=== PATIENT | male | born 1950 | race Caucasian/White ===

== ENCOUNTER 2019-10-18 10:52 | Emergency (ER) | payer MEDICARE, OTHER ==
[~2019-10-18] VITALS: Ht 185.4 cm; Wt 112.9 kg
--- NOTE | 2019-10-18 10:55 | NUR ---
BIBRA 76, C/O WEAKNESS AND CHILLS x 2 DAYS, AFEBRILE. TO ER BED 9, HOOKED TO MONITOR, CHANGED TO HOSP GOWN, PROVIDED W WARM BLANKET, AWAITING MD CABRERA
--- NOTE | 2019-10-18 11:25 | NUR ---
RAVI JOSE AT BEDSIDE
[2019-10-18] MEDS ORDERED: IV NS 0.9% 1,000 ML BAG IV ONE ×2 (11:30→14:00)
--- NOTE | 2019-10-18 11:41 | NUR ---
CRIMINAL ATTORNEY AT BEDSIDE
[2019-10-18 11:44] LABS: BASOPHILS # (AUTO) 0.1 /CMM (0.0-0.2); BASOPHILS % (AUTO) 0.5 % (0.0-2.0); EOSINOPHILS % (AUTO) 0.1 % (0.0-6.0); HEMATOCRIT 43 % (39-51); HEMOGLOBIN 13.8 g/dL (13.5-17.5); LYMPHOCYTES # (AUTO) 0.9 /CMM (0.8-4.8); LYMPHOCYTES % (AUTO) 6.6 % (20.0-44.0); MEAN CORPUSCULAR HGB CONC 33 g/dl (31.0-36.0); MEAN CORPUSCULAR VOLUME 77 fL (80-96); MONOCYTES # (AUTO) 1.1 /CMM (0.1-1.30); NEUTROPHILS # (AUTO) 11.9 /CMM (1.8-8.9); NEUTROPHILS % (AUTO) 84.8 % (43.0-81.0); PLATELET COUNT (AUTO) 194 /CMM (150-450); RED BLOOD CELL COUNT(AUTO) 5.53 MIL/uL (4.5-6.0); WHITE BLOOD COUNT (AUTO) 14.1 K/uL (4.3-11.0)
[2019-10-18 11:56] LABS: CALCIUM, SERUM 9.2 mg/dL (8.5-10.1); CREATININE 1.5 mg/dL (0.6-1.3); POTASSIUM 3.3 mmol/L (3.5-5.1)
[2019-10-18 12:02] LABS: ALBUMIN 3.5 g/dL (3.4-5.0); BILIRUBIN,DIRECT 0.3 mg/dL (0.0-0.2); BILIRUBIN,TOTAL 1.4 mg/dL (0.2-1.0); TOTAL PROTEIN, SERUM 7.8 g/dL (6.4-8.2)
--- NOTE | 2019-10-18 14:02 | NUR ---
PATIENT IN BED AWAKE, HOOKED TO MONITOR, AT BEDSIDE, WILL CONTINUE TO MONITOR. KEPT SAFE AND COMFORTABLE
[2019-10-18 15:13] LABS: APPEARANCE,URINE Clear (CLEAR); BILIRUBIN,URINE Negative (NEGATIVE); BLOOD, URINE Moderate Ery/uL (NEGATIVE); COLOR,URINE Yellow (YELLOW); KETONES,URINE Negative (NEGATIVE); LEUKOCYTE ESTERASE ,URINE Negative (NEGATIVE); NITRITE, URINE Negative (NEGATIVE); PROTEIN,URINE >=300 mg/dl (NEGATIVE); UGLUCOSE Negative (NEGATIVE); UROBILINOGEN,URINE >=8.0 EU/dL (0.2)
[2019-10-18 15:14] LABS: BACTERIA,URINE Few /HPF (None Seen); HYALINE CASTS, URINE Few /LPF (None Seen); SQUAMOUS EPITHELIAL CELL,UR Rare /HPF (None Seen)
--- NOTE | 2019-10-18 15:52 | NUR ---
PATIENT ABLE TO AMBULATE WITH STEADY GAIT. MADE RAVI JOSE AWARE. Addendum: 10/18/19 at 1618 by CHIO PATIENT ABLE TO AMBULATE WITH UNSTEADY GAIT. MADE RAVI JOSE AWARE.
--- NOTE | 2019-10-18 15:56 | NUR ---
Patient does not wish to proceed with medical care recommended by RAVI JOSE. Patient given information related to possible complications, up to and including , which could occur as a result of leaving the hospital at this time. Patient verbalizes understanding of risks involved due to leaving against medical advice. Patient has signed AMA form.
--- NOTE | 2019-10-18 15:58 | NUR ---
IV removed. Catheter intact and site benign. Pressure and 4x4 applied to site. No bleeding noted. Patient discharged to home with in stable condition. Written and verbal after care instructions given. Patient verbalizes understanding of instruction.
[2019-10-18 16:20] VITALS: BP 176/92
== END 2019-10-18 16:20 | disposition left against medical advice (07) ==
LOC: ER 10:54
DX: R53.1 Weakness (principal); I10 Essential (primary) hypertension; I25.2 Old myocardial infarction; F32.9 Major depressive disorder, single episode, unspecified; Z86.73 Personal history of transient ischemic attack (TIA), and cerebral infarction without residual deficits; Z95.818 Presence of other cardiac implants and grafts
CPT/HCPCS: 36415; 71045; 76705; 80048; 80076; 81001; 83690; 84484 ×2; 85025; 87804 ×2; 93005 ×2; 99284; J7030 ×2; 81000-TC